=== PATIENT | male | born 1985 ===

== ENCOUNTER 2018-04-27 11:20 | Emergency (ER) | payer OTHER ==
--- NOTE | 2018-04-27 12:19 | UC ---
Abdominal Pain Male HPI - HPI Summary HPI Summary: 33 yo male presents with epigastric pain. He tells me that he gets this pain about 3-4 times a year and has had this for many years. Has had a workup back in [place] by GI and has had endoscopies and imaging that have all been normal - per pt. He has had this here and has gone to the ED in the past and says pain always resolves with fluids and "medicine in the IV". Last night his pain developed and was 10/10 and had two episodes of vomiting. This morning had some loose stool, but says pain was improved to about an 8/10. He has not eaten or drank anything today. Denies fever, chills, SOB, chest pain, dysuria. - History of Current Complaint Chief Complaint: UCAbdominalPain Stated Complaint: ABD PAIN Time Seen by Provider: 04/27/18 12:02 Hx Obtained From: Patient Onset/Duration: Sudden Onset Severity Initially: Moderate Severity Currently: Severe Pain Intensity: 8 Pain Scale Used: 0-10 Numeric Location: Epigastric Radiates: No - Allergies/Home Medications Allergies/Adverse Reactions: Allergies Allergy/AdvReac Type Severity Reaction Status Date / Time No Known Allergies Allergy Verified 04/27/18 11:58 Home Medications: Home Medications [facility] For Stomach* PRN 04/27/18 [History] Vitamins* 04/27/18 [History] PMH/Surg Hx/FS Hx/Imm Hx - Additional Past Medical History Additional PMH: Chronic abdominal pain - Surgical History Surgical History: None - Family History Known Family History: Positive: None - Social History Occupation: Employed Full-time Lives: With Family Alcohol Use: Occasionally Substance Use Type: None Smoking Status (MU): Current Every Day Smoker Amount Used/How Often: VAPE Review of Systems All Other Systems Reviewed And Are Negative: Yes Constitutional: Positive: Negative Skin: Positive: Negative Respiratory: Positive: Negative Cardiovascular: Positive: Negative Gastrointestinal: Positive: Abdominal Pain, Vomiting, Diarrhea, Nausea Genitourinary: Positive: Negative Neurovascular: Positive: Negative Neurological: Positive: Negative Psychological: Positive: Negative Physical Exam - Summary Physical Exam Summary: GENERAL: NAD. WDWN. No pain distress. SKIN: No rashes, sores, lesions, or open wounds. NECK: Supple. Nontender. No lymphadenopathy. CHEST: CTAB. No r/r/w. No accessory muscle use. Breathing comfortably and in no distress. CV: RRR. Without m/r/g. Pulses intact. Cap refill <2seconds ABDOMEN: Soft. Moderate TTP at epigastric region. No distention or guarding. No organomegaly. No CVA tenderness. Bowel sounds present NEURO: Alert. PSYCH: Age appropriate behavior. Triage Information Reviewed: Yes Vital Signs: Initial Vital Signs Temp 98.1 F 04/27/18 11:54 Pulse 85 04/27/18 11:54 Resp 16 04/27/18 11:54 BP 144/90 04/27/18 11:54 Pulse Ox 99 04/27/18 11:54 Vital Signs Reviewed: Yes Abd Pain Male Course/Dx - Course Course Of Treatment: US: IMPRESSION: FATTY INFILTRATION OF THE LIVER. Pt was given 1L NS, Zofran, and toradol in the clinic. On recheck after fluids pt's pain significantly improved and rates it a 2/10 and has no more nausea. On exam has no more abdominal tenderness. Discussed with him that if his pain returns, he should go to the ED for a further workup. - Differential Dx/Clinical Impression Provider Diagnosis: Epigastric pain Discharge - Sign-Out/Discharge Documenting (check all that apply): Patient Departure All imaging exams completed and their final reports reviewed: Yes - Discharge Plan Condition: Stable Disposition: HOME Prescriptions: Ondansetron ODT TAB* [Zofran 4 MG Odt TAB*] 4 mg PO Q8H PRN #12 tab.odt PRN Reason: Nausea Patient Education Materials: Gastroenteritis (DC) Referrals: No Primary Care Phys,NOPCP [Primary Care Provider] - Additional Instructions: If you develop a fever, shortness of breath, chest pain, new or worsening symptoms - please call your PCP or go to the ED. Your blood pressure was high at todays visit. Please see your primary provider within 4 weeks for recheck and re-evaluation. - Billing Disposition and Condition Condition: STABLE Disposition: Home - Attestation Statements Provider Attestation: I was available for consult. This patient was seen by the ROXANNE. The patient was not presented to, seen by, or examined by me. -Charo
[2018-04-27] MEDS: Ketorolac INJ* 30 MG/ML 1 ML VIAL IV PUSH ONE (13:12)
[2018-04-27] MEDS: NS 0.9% 1000 ML* 1,000 ML IV ONE (13:12)
[2018-04-27] MEDS: Ondansetron INJ* 2 MG/ML VIAL IV ONE (13:12)
== END 2018-04-27 13:58 | disposition home or self-care (01) ==
LOC: UCEAST 11:20
DX: R10.13 Epigastric pain (principal); F17.290 Nicotine dependence, other tobacco product, uncomplicated
CPT/HCPCS: 76705; 96360; 96374; 96375; 99202; G0463; J1885; J2405